=== PATIENT | female | born 1995 | race Caucasian/White ===

== ENCOUNTER → 2016-12-02 | Outpatient (CLI) | payer OTHER ==
--- NOTE | 2016-12-02 13:47 | CT ---
EXAMINATION TYPE: CT abdomen pelvis w con DATE OF EXAM: 12/02/2016 COMPARISON: NONE INDICATION: Hematuria, Abdominal pain DLP: 430.80 mGycm, Automated exposure control for dose reduction was used. CONTRAST: 100 ml mL of Omnipaque 300. Study performed with Oral Contrast TECHNIQUE: Axial images were obtained from above the diaphragm to the pubic rami in the axial plane a t 5 mm thick sections. Reconstructed images are reviewed on the computer in the coronal plane. FINDINGS: Limited CT sections are obtained the lung bases. Subtle pneumonitis changes at the right lower lobe. . CT ABDOMEN: Liver: Normal Spleen: Normal Pancreas: Normal Adrenal glands: The adrenal glands are normal. Gallbladder: Normal Kidneys: No masses are evident. No hydronephrosis is present. No cysts are present. Delayed images were obtained through the kidneys, normal CT abdomen pelvis. Which remain unremarkable. Aorta: Normal Inferior vena cava: Normal. CT PELVIS: Loops of bowel within the abdomen and pelvis are normal. There are loops of bowel which are incom pletely distended or lack oral contrast limiting their evaluation. Appendix: Not visualized Urinary bladder: Normal. Genitourinary structures: Uterus is retroverted. IUD is in place. Adnexal regions are clear. Osseous structures: No suspicious lytic or sclerotic lesions. IMPRESSIONS: 1.
== END | disposition home or self-care (01) ==
LOC: RADCTMAIN 11:53
PROVIDERS: ATTEND Family Medicine
DX: R10.32 Left lower quadrant pain (principal); R31.9 Hematuria, unspecified; Z88.0 Allergy status to penicillin; Z88.1 Allergy status to other antibiotic agents
CPT/HCPCS: 74177; Q9967

== ENCOUNTER 2017-02-06 09:21 | Day surgery (SDC) | payer OTHER ==
[2017-02-04 14:40] VITALS: BMI 23.3
[~2017-02-06 09:21] MED LIST: LACTATED RINGERS 1,000 ML IV SCH; LIDOCAINE 1% 20 ML VIAL (10MG/ML) FOR IV START INTRADERMA PRN
[2017-02-06 09:43] VITALS: RESP 16; TEMP 98.7
[2017-02-06] MEDS ORDERED: fentaNYL (PF) 50 MCG/ML 2 ML AMP ONE (10:17)
[2017-02-06] MEDS ORDERED: MIDAZOLAM 2 MG/2 ML VIAL ONE (10:17)
[2017-02-06] MEDS ORDERED: GLUCAGON 1 MG/ML VIAL ONE (10:17)
[2017-02-06] MEDS ORDERED: PROPOFOL 10 MG/ML 20 ML VIAL IV ONE (10:17)
--- NOTE | 2017-02-06 10:21 | P.GSHP ---
History of Present Illness H&P Date: 02/06/17 Chief Complaint: GI bleed, left lower quadrant pain This is a 21-year-old female referred from [facility]. Patient's had complaints of left lower quadrant pain and rectal bleeding. She presents today for colonoscopy. Past Medical History Past Medical History: No Reported History Additional Past Medical History / Comment(s): HAD AN EPISODE OF BLOOD IN STOOL IN NOVEMBER. HAS BEEN HAVING N/V/D AND STOMACH CRAMPING History of Any Multi-Drug Resistant Organisms: None Reported Past Surgical History: Section, Tonsillectomy Additional Past Surgical History / Comment(s): C-SEC X 2. TUMOR REMOVED FROM LT INDEX FINGER. SURGERY TO WIRE JAW Past Anesthesia/Blood Transfusion Reactions: No Reported Reaction Smoking Status: Current every day smoker - Past Family History Mother Family Medical History: Cancer Medications and Allergies Home Medications Medication Instructions Recorded Confirmed Type No Known Home Medications [No 02/04/17 02/06/17 History Known Home Medications] Allergies Allergy/AdvReac Type Severity Reaction Status Date / Time cephalexin monohydrate Allergy Rash/Hives Verified 02/06/17 09:39 [From Keflex] Penicillins Allergy Rash/Hives Verified 02/06/17 09:39 Surgical - Exam Vital Signs Temp Pulse Resp BP Pulse Ox 98.7 F 85 16 107/57 99 02/06/17 09:42 02/06/17 09:42 02/06/17 09:42 02/06/17 09:42 02/06/17 09:42 - General well developed, no distress - Eyes PERRL - ENT normal pinna - Neck no masses - Respiratory normal expansion - Cardiovascular Rhythm: regular - Abdomen Abdomen: soft, non tender Assessment and Plan Plan: Left lower quadrant pain, rectal bleeding. We'll perform colonoscopy.
--- NOTE | 2017-02-06 10:47 | P.OP ---
Date of Procedure: 02/06/17 Preoperative Diagnosis: GI bleed Left lower quadrant pain Postoperative Diagnosis: Normal colonoscopy Random rectal biopsy Procedure(s) Performed: Colonoscopy Implants: Anesthesia: MAC Surgeon: Aneesh Rojas Pathology: other (Rectum) Condition: stable Disposition: PACU Indications for Procedure: Operative Findings: Description of Procedure: PROCEDURE: The patient was placed on the endoscopy table in the lateral position. Digital rectal examination was performed which revealed no abnormalities. T. Flexible colonoscope was then placed in the patient's anus and passed throughout the entire colon. The ileocecal valve was visualized. The cecum, ascending, transverse, descending and sigmoid colon were normal. The rectum was normal as well. A random rectal biopsies performed. There were no masses, polyps or diverticula noted in the entire colon. SUMMARY OF FINDINGS: Normal colonoscopy.
[2017-02-06 11:31] VITALS: BP 96/59; PULSE 59
== END 2017-02-06 11:41 | disposition home or self-care (01) ==
LOC: ORWHC2ENDO 09:21
PROVIDERS: ATTEND Surgery
DX: R10.32 Left lower quadrant pain (principal); K92.1 Melena; F17.200 Nicotine dependence, unspecified, uncomplicated; Z88.1 Allergy status to other antibiotic agents; Z88.0 Allergy status to penicillin
CPT/HCPCS: 81025; 88305; 45380; J2250; J1610; J3010; J2704

== ENCOUNTER 2017-09-02 19:30 | Emergency (ER) | payer OTHER ==
[2017-09-02 19:37] VITALS: BP 114/65; PULSE 81; RESP 16; TEMP 97.8
--- NOTE | 2017-09-02 20:05 | ED ---
General Adult HPI - General Chief complaint: ENT Stated complaint: sore throat Time Seen by Provider: 09/02/17 19:55 Source: patient, RN notes reviewed Mode of arrival: ambulatory Limitations: no limitations - History of Present Illness Initial comments: 21-year-old female presents to the emergency department for a chief complaint of sore throat x 3 days. Patient states her boyfriend was diagnosed with strep throat about 4 days ago. Patient complains of pain in the throat as well as discomfort with swallowing. She states the anterior aspect of her throat is tender to palpation. Patient denies any fevers but states she has had chills on and off. Patient does admit to slight congestion and ear pressure. Patient denies cough or shortness of breath. Patient is eating and drinking fine. Patient has had a tonsillectomy. - Related Data Home Medications Medication Instructions Recorded Confirmed No Known Home Medications [No 02/04/17 02/06/17 Known Home Medications] Allergies Allergy/AdvReac Type Severity Reaction Status Date / Time cephalexin monohydrate Allergy Rash/Hives Verified 09/02/17 19:34 [From [employer]] Penicillins Allergy Rash/Hives Verified 09/02/17 19:34 Review of Systems ROS Statement: Those systems with pertinent positive or pertinent negative responses have been documented in the HPI. ROS Other: All systems not noted in ROS Statement are negative. Past Medical History Past Medical History: No Reported History Additional Past Medical History / Comment(s): HAD AN EPISODE OF BLOOD IN STOOL IN NOVEMBER. HAS BEEN HAVING N/V/D AND STOMACH CRAMPING History of Any Multi-Drug Resistant Organisms: None Reported Past Surgical History: Section, Tonsillectomy Additional Past Surgical History / Comment(s): C-SEC X 2. TUMOR REMOVED FROM LT INDEX FINGER. SURGERY TO WIRE JAW Past Anesthesia/Blood Transfusion Reactions: No Reported Reaction Past Psychological History: No Psychological Hx Reported Smoking Status: Current every day smoker Past Alcohol Use History: None Reported Past Drug Use History: None Reported - Past Family History Mother Family Medical History: Cancer General Exam Limitations: no limitations Head exam: Present: atraumatic, normocephalic, normal inspection ENT exam: Present: normal exam, normal oropharynx, mucous membranes moist, TM's normal bilaterally Neck exam: Present: normal inspection, tenderness (Patient admits to tenderness to palpation to the anterior neck.). Absent: meningismus, lymphadenopathy Respiratory exam: Present: normal lung sounds bilaterally. Absent: respiratory distress, wheezes, rales, rhonchi, stridor Cardiovascular Exam: Present: regular rate, normal rhythm, normal heart sounds. Absent: systolic murmur, diastolic murmur, rubs, gallop, clicks GI/Abdominal exam: Present: soft, normal bowel sounds. Absent: distended, tenderness, guarding, rebound, rigid Course Vital Signs 09/02/17 19:34 Temperature 97.8 F Pulse Rate 81 Respiratory 16 Rate Blood Pressure 114/65 O2 Sat by Pulse 100 Oximetry Medical Decision Making - Medical Decision Making 21-year-old female process the emergency department for chief complaint of sore throat. This has been going on for about 3 days. Patient's boyfriend was diagnosed with strep 4 days ago. Patient has had a tonsillectomy in the past. Patient admits to congestion and ear pressure but denies cough, shortness of breath, chest pain, abdominal pain, nausea or vomiting, or fevers. Rapid strep was negative. Culture will be sent. Patient likely has a viral pharyngitis. Patient will take ibuprofen and Tylenol for pain relief. She will also get over -the-counter cold medications such as Mucinex for congestion. She will follow up with primary care provider in one to 2 days. She will return to the emergency department if symptoms worsen or she begins to notice high fevers that cannot be reduced. - Lab Data Lab Results 09/02/17 Range/Units 19:40 Group A Strep Rapid Negative (Negative) Disposition Clinical Impression: Viral pharyngitis Disposition: HOME SELF-CARE Condition: Good Instructions: Pharyngitis (ED) Additional Instructions: Please use ibuprofen and Tylenol for pain relief and fever reduction. Use over- the-counter medications such as Mucinex for symptom relief. Please return to the emergency department if symptoms worsen or you have high fevers that cannot be reduced. Otherwise follow-up with primary care provider in one to 2 days. Referrals: Ginger Michelle DO [Primary Care Provider] - 1-2 days Time of Disposition: 20:34
== END 2017-09-02 20:17 | disposition home or self-care (01) ==
LOC: EC 19:30
DX: J02.9 Acute pharyngitis, unspecified (principal); F17.200 Nicotine dependence, unspecified, uncomplicated; Z90.89 Acquired absence of other organs; Z88.1 Allergy status to other antibiotic agents; Z88.0 Allergy status to penicillin
CPT/HCPCS: 87081; 87430; 99283

== ENCOUNTER → 2017-09-02 | Outpatient (CLI) | payer OTHER ==
--- NOTE | 2017-09-03 06:11 | CT ---
EXAMINATION TYPE: CT pelvis wo con DATE OF EXAM: 09/02/2017 COMPARISON: 12/02/2016 HISTORY: 21-year-old female complains of posterior pelvic/tailbone pain post fall. Evaluate for fract ure. TECHNIQUE: Contiguous axial scanning of the pelvis without IV contrast. Coronal and sagittal reconstr uctions performed. CT DLP: 455 mGycm Automated exposure control for dose reduction was used. FINDINGS: Retroverted uterus with IUD appropriately situated along the uterine cavity. No abnormal fluid collec tion the pelvis. The SI joints and pubic symphysis appear intact. The sacrum is intact. There is some slight superior acetabular retroversion noted. When comparing to the CT of 12/02/2016, there is greater degree of anterior angulation of the distal co ccygeal segments at approximately 98 degrees versus 115 degrees, previously. Referring to sagittal im age 54 on the current exam versus sagittal image 56 on the 12/02/2016 exam. No additional fracture identified. IMPRESSION: 1. GREATER DEGREE OF ANTERIOR ANGULATION OF THE DISTAL COCCYGEAL SEGMENTS COMPARED TO CT OF 12/03/19 17 SUGGESTS AN ANGULATED TAILBONE FRACTURE. 2. NO ADDITIONAL ACUTE OSSEOUS ABNORMALITY SEEN. 3. SOME SUBTLE BONY CHANGES OF THE HIPS CAN BE SEEN IN THE SETTING OF FEMORAL ACETABULAR IMPINGEMENT SYNDROME. CORRELATE WITH PHYSICAL EXAM TESTING AND FOR ANY CHRONIC SYMPTOMS.
== END | disposition home or self-care (01) ==
LOC: RADCTMAIN 18:47
PROVIDERS: ATTEND Family Medicine
DX: R93.7 Abnormal findings on diagnostic imaging of other parts of musculoskeletal system (principal); R52 Pain, unspecified
CPT/HCPCS: 72192

== ENCOUNTER 2021-02-19 21:52 | Emergency (ER) | payer OTHER ==
[2021-02-19 22:40] VITALS: TEMP 98.1
--- NOTE | 2021-02-19 23:24 | ED ---
Lower Extremity Injury HPI - General Chief Complaint: Extremity Injury, Lower Stated Complaint: L ankle injury Time Seen by Provider: 02/19/21 22:16 Source: patient, RN notes reviewed Mode of arrival: wheelchair Limitations: no limitations - History of Present Illness Initial Comments: This is a well-appearing 25-year-old female, alert and oriented 4, presenting to the emergency room with left ankle pain and swelling. Patient states that she was walking down her driveway and it gutiérrez a definite and she rolled her left ankle. She states that she felt a pop or snap. She has had previous fracture in that foot in the past. She did take Tylenol arrival. states was able to bear some weight. MD Complaint: ankle injury -: hour(s) (3) Injury: Ankle: Left Place: street/outdoors (Down her driveway) Severity scale (1-10): 7 Worsens With: movement, palpation Context: other (Rolled her ankle on her driveway) Associated Symptoms: snap/pop sensation, swelling, able to partially bear weight Treatments Prior to Arrival: cold therapy, other (Tylenol) - Related Data Previous Rx's Medication Instructions Recorded Ibuprofen [Motrin] 600 mg PO Q8HR PRN #30 tab 02/19/21 Allergies Allergy/AdvReac Type Severity Reaction Status Date / Time cephalexin monohydrate Allergy Rash/Hives Verified 02/19/21 22:36 [From Keflex] Penicillins Allergy Rash/Hives Verified 02/19/21 22:36 Review of Systems ROS Statement: Those systems with pertinent positive or pertinent negative responses have been documented in the HPI. ROS Other: All systems not noted in ROS Statement are negative. Past Medical History Past Medical History: No Reported History Additional Past Medical History / Comment(s): HAD AN EPISODE OF BLOOD IN STOOL IN NOVEMBER. HAS BEEN HAVING N/V/D AND STOMACH CRAMPING History of Any Multi-Drug Resistant Organisms: None Reported Past Surgical History: Section, Tonsillectomy Additional Past Surgical History / Comment(s): C-SEC X 2. TUMOR REMOVED FROM LT INDEX FINGER. SURGERY TO WIRE JAW Past Anesthesia/Blood Transfusion Reactions: No Reported Reaction Past Psychological History: No Psychological Hx Reported Smoking Status: Current every day smoker Past Alcohol Use History: None Reported Past Drug Use History: None Reported - Past Family History Mother Family Medical History: Cancer General Exam Limitations: no limitations General appearance: alert, in no apparent distress Head exam: Present: atraumatic, normocephalic, normal inspection Eye exam: Present: normal appearance, EOMI Respiratory exam: Present: normal lung sounds bilaterally. Absent: respiratory distress, wheezes, rales, rhonchi, stridor Cardiovascular Exam: Present: regular rate, normal rhythm, normal heart sounds. Absent: systolic murmur, diastolic murmur, rubs, gallop, clicks Left Ankle exam: Present: tenderness, swelling. Absent: full ROM, laceration, crep itus, dislocation, erythema Foot/Toe exam: Present: tenderness. Absent: swelling (Fifth metatarsal), ecchymosis, deformity Neurovascular tendon exam: Present: no vascular compromise. Absent: abnormal cap refill, sensory deficit, extremity cold to touch, pallor, foot drop Neurological exam: Present: alert, oriented X3, CN II-XII intact Psychiatric exam: Present: normal affect, normal mood Skin exam: Present: warm, dry, intact, normal color. Absent: rash Course Vital Signs 02/19/21 22:36 Temperature 98.1 F Pulse Rate 94 Respiratory 16 Rate Blood Pressure 121/68 O2 Sat by Pulse 97 Oximetry Medical Decision Making - Medical Decision Making X-ray shows no acute fracture there is soft tissue swelling to the lateral malleolus. Patient will be placed in an stirrup splint and directed to follow up with orthopedics. Rest, ice and elevate Motrin as needed for pain. Disposition Clinical Impression: Ankle sprain Disposition: HOME SELF-CARE Condition: Good Instructions (If sedation given, give patient instructions): Ankle Sprain (ED) Additional Instructions: Rest, ice, elevate and use Motrin to decrease swelling. Follow-up with orthopedics next week. Return if any new or worsening symptoms. Prescriptions: Ibuprofen [Motrin] 600 mg PO Q8HR PRN #30 tab PRN Reason: Pain Is patient prescribed a controlled substance at d/c from ED?: No Referrals: Ginger Michelle DO [Primary Care Provider] - 1-2 days Dany Johnson MD [Medical Doctor] - 1-2 days Time of Disposition: 23:39
--- NOTE | 2021-02-19 23:35 | XR ---
EXAMINATION TYPE: XR ankle complete LT DATE OF EXAM: 02/19/2021 COMPARISON: None HISTORY: Ankle pain TECHNIQUE: 3 views FINDINGS: There is soft tissue swelling over the lateral malleolus. Ankle mortise is anatomic. There is no sign of a fracture. IMPRESSION: Lateral soft tissue swelling. No fracture.
[2021-02-19] MEDS ORDERED: IBUPROFEN 600 MG TAB PO STA (23:44)
[2021-02-19 23:49] VITALS: BP 131/66; PULSE 99; RESP 20
== END 2021-02-20 00:04 | disposition home or self-care (01) ==
LOC: EC 21:52
DX: S93.402A Sprain of unspecified ligament of left ankle, initial encounter (principal); F17.200 Nicotine dependence, unspecified, uncomplicated; Z88.0 Allergy status to penicillin; Z88.1 Allergy status to other antibiotic agents; W01.0XXA Fall on same level from slipping, tripping and stumbling without subsequent striking against object, initial encounter; Y93.01 Activity, walking, marching and hiking; Y92.488 Other paved roadways as the place of occurrence of the external cause
CPT/HCPCS: 99283

== ENCOUNTER 2021-12-31 11:32 | Emergency (ER) | payer OTHER ==
[2021-12-31] MEDS ORDERED: KETOROLAC 15 MG/ML 1 ML VIAL IM STA (11:44)
--- NOTE | 2021-12-31 12:24 | XR ---
Right ankle and right foot HISTORY: Trauma and pain 3 views of the right ankle and 3 views of the right foot There is soft tissue swelling present. Bone mineralization, joint spaces and alignment are maintained . Ossific fragment proximal to the talus centimeter well-corticated and not likely to be acute, corre late for point tenderness. The middle phalanx of the third digit of the right foot show some sclerosis which may represent bone island, nonaggressive appearance. Follow-up could be performed to assess for stability. IMPRESSION: Soft tissue swelling. No evident dislocation, additional findings above.
--- NOTE | 2021-12-31 12:58 | ED ---
Lower Extremity Injury HPI - General Chief Complaint: Extremity Injury, Lower Stated Complaint: rt foot injury Time Seen by Provider: 12/31/21 11:38 Source: patient Mode of arrival: wheelchair Limitations: no limitations - History of Present Illness Initial Comments: Patient is a 26-year-old female presenting with chief complaint of right foot injury. Patient states that last night she tripped on a hole her dog had dug in her backyard. She twisted her right ankle. Today she admits to swelling and pain. She is taking Motrin. She denies any numbness, tingling, weakness, redness, discoloration. - Related Data Previous Rx's Medication Instructions Recorded Ibuprofen [Motrin] 600 mg PO Q8HR PRN #30 tab 02/19/21 Allergies Allergy/AdvReac Type Severity Reaction Status Date / Time cephalexin monohydrate Allergy Rash/Hives Verified 12/31/21 11:36 [From Keflex] Penicillins Allergy Rash/Hives Verified 12/31/21 11:36 Review of Systems ROS Statement: Those systems with pertinent positive or pertinent negative responses have been documented in the HPI. ROS Other: All systems not noted in ROS Statement are negative. Past Medical History Past Medical History: No Reported History Additional Past Medical History / Comment(s): HAD AN EPISODE OF BLOOD IN STOOL IN NOVEMBER. HAS BEEN HAVING N/V/D AND STOMACH CRAMPING History of Any Multi-Drug Resistant Organisms: None Reported Past Surgical History: Section, Tonsillectomy Additional Past Surgical History / Comment(s): C-SEC X 2. TUMOR REMOVED FROM LT INDEX FINGER. SURGERY TO WIRE JAW Past Anesthesia/Blood Transfusion Reactions: No Reported Reaction Past Psychological History: No Psychological Hx Reported Smoking Status: Current every day smoker Past Alcohol Use History: Occasional Past Drug Use History: None Reported - Past Family History Mother Family Medical History: Cancer General Exam Limitations: no limitations General appearance: alert, in no apparent distress Head exam: Present: atraumatic, normocephalic, normal inspection Eye exam: Present: normal appearance, EOMI. Absent: scleral icterus, periorbital swelling Neck exam: Present: normal inspection Right Ankle exam: Present: tenderness, swelling. Absent: full ROM Foot/Toe exam: Present: tenderness, swelling. Absent: full ROM Neurovascular tendon exam: Present: no vascular compromise. Absent: sensory deficit Neurological exam: Present: alert, oriented X3, CN II-XII intact Psychiatric exam: Present: normal affect, normal mood Skin exam: Present: warm, dry, intact, normal color. Absent: rash Course Vital Signs 12/31/21 12/31/21 11:33 13:02 Temperature 98.4 F 97.8 F Pulse Rate 103 H 80 Respiratory 18 16 Rate Blood Pressure 156/71 108/73 O2 Sat by Pulse 100 99 Oximetry Medical Decision Making - Medical Decision Making Patient is a 26-year-old female presenting for chief complaint of right ankle pain. Patient twisted her ankle last night. She admits to pain and swelling. On examination there is no vascular compromise, no sensory deficit, pain and swelling most notably on the lateral portion. X-ray shows soft tissue swelling, no evident dislocation, there is an ossific fragment proximal to the talus centimeter well-corticated and not likely to be acute. Educated the patient on these findings and instructed her to follow up with her PCP and orthopedics. Provided with ankle stirrup. Discussed supportive treatment. Report back to ER if any new or worsening symptoms. Discussed return parameters answered all questions. Patient conveyed verbal understanding and agreed to the plan. My attending is Dr. Stewart. Disposition Clinical Impression: Ankle sprain, Deformity of talus Disposition: HOME SELF-CARE Condition: Good Instructions (If sedation given, give patient instructions): Ankle Sprain (ED) Additional Instructions: Follow-up with PCP and orthopedics. Report back to ER with any new or worsening symptoms. Take Motrin and Tylenol as needed for pain control. Rest, ice, compress, elevate for symptomatic management. Use crutches as needed. Is patient prescribed a controlled substance at d/c from ED?: No Referrals: Ginger Michelle DO [Primary Care Provider] - 1-2 days Dany Johnson MD [Medical Doctor] - 1-2 days Time of Disposition: 12:57
[2021-12-31 13:02] VITALS: BP 108/73; PULSE 80; RESP 16; TEMP 97.8
== END 2021-12-31 13:02 | disposition home or self-care (01) ==
LOC: EC 11:32
DX: S93.401A Sprain of unspecified ligament of right ankle, initial encounter (principal); F17.200 Nicotine dependence, unspecified, uncomplicated; Z88.0 Allergy status to penicillin; Z88.1 Allergy status to other antibiotic agents; W01.0XXA Fall on same level from slipping, tripping and stumbling without subsequent striking against object, initial encounter
CPT/HCPCS: 73610; 73630; 99283; 96372; J1885

== ENCOUNTER → 2022-09-25 | Outpatient (CLI) | payer OTHER ==
--- NOTE | 2022-09-25 12:54 | CT ---
EXAMINATION TYPE: CT pelvis wo con DATE OF EXAM: 09/25/2022 COMPARISON: CT pelvis September 02, 2017 HISTORY: right lower inguinal stabbing pain x2 months CT DLP: 673 mGycm Automated exposure control for dose reduction was used. FINDINGS: Visualized liver, spleen, gallbladder, both adrenal glands, and kidneys are unremarkable. Oral contrast reaches level of the rectum. No suspicious small or large bowel dilatation. Normal appe aring appendix from the cecum. Slightly retroflexed uterus with central metallic IUD is redemonstrated. Ovaries symmetric and normal in size axial image 51. No free fluid in the pelvis. No groin hernia or adenopathy seen bilaterally. Muscle bulk is symmetric and maintained in both thigh s. Visualized osseous structures are intact. Anterior angulation of the coccyx relative to distal sac rum is unchanged from most recent prior CT. IMPRESSION: Unremarkable study. No significant change from prior study.
== END | disposition home or self-care (01) ==
LOC: RADCTMAIN 10:59
PROVIDERS: ATTEND Family Medicine
DX: R10.9 Unspecified abdominal pain (principal); R11.2 Nausea with vomiting, unspecified
CPT/HCPCS: 72192